=== PATIENT | female | born 1980 | race Caucasian/White ===

== ENCOUNTER 2017-02-10 19:38 | Emergency (ER) | payer MEDICAID, OTHER ==
[2017-02-10 19:38] VITALS: BMI 36.8
[2017-02-10 19:56] VITALS: BP 129/82; PULSE 73; RESP 16; TEMP 98.9; O2SAT 99
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
== END 2017-02-10 20:13 | disposition home or self-care (01) ==
LOC: ED 19:38
DX: L03.116 Cellulitis of left lower limb (principal)

== ENCOUNTER 2018-04-15 19:36 | Emergency (ER) | payer BC, MEDICAID ==
[2018-04-15 19:48] VITALS: BMI 31.6
--- NOTE | 2018-04-15 20:49 | ED PDOC ---
Arrival/HPI - General Chief Complaint: ENT Problem Time Seen by Provider: 04/15/18 20:14 Historian: Patient - History of Present Illness Narrative History of Present Illness (Text): 04/15/18 20:46 37yo female with no pmhx who present with complaint of sore throat, cough, chills, bodyache x 2days. Notes odynophagia. Denies dysphagia, drooling, trismus , hoarseness, sick contact, travel, any other complaint. Past Medical History - Provider Review Nursing Documentation Reviewed: Yes - Infectious Disease Hx of Infectious Diseases: None - Tetanus Immunization Tetanus Immunization: Unknown - Psychiatric Hx Psychophysiologic Disorder: No Hx Substance Use: No - Surgical History Hx Orthopedic Surgery: Yes (left knee) Other/Comment: ECTOPIC - Anesthesia Hx Anesthesia: Yes Family/Social History - Physician Review Nursing Documentation Reviewed: Yes Family/Social History: Unknown Family HX Smoking Status: Never Smoked Hx Alcohol Use: No Hx Substance Use: No Allergies/Home Meds Allergies/Adverse Reactions: Allergies No Known Allergies Allergy (Verified 02/10/17 19:52) Review of Systems - Physician Review All systems were reviewed & negative as marked: Yes - Review of Systems Constitutional: Fevers Eyes: Normal ENT: Sore Throat Respiratory: Normal, Cough Cardiovascular: Normal Gastrointestinal: Normal Genitourinary Female: Normal Musculoskeletal: Normal Skin: Normal Neurological: Normal Endocrine: Normal Hemo/Lymphatic: Normal Psychiatric: Normal Physical Exam Vital Signs Reviewed: Yes Vital Signs Temp Pulse Resp BP Pulse Ox 04/15/18 19:51 99.9 F H 97 H 18 111/77 98 Temperature: Afebrile Blood Pressure: Normal Pulse: Regular Respiratory Rate: Normal Appearance: Positive for: Well-Appearing, Non-Toxic, Comfortable Pain Distress: None Mental Status: Positive for: Alert and Oriented X 3 - Systems Exam Head: Present: Atraumatic, Normocephalic Pupils: Present: PERRL Extroacular Muscles: Present: EOMI Conjunctiva: Present: Normal Mouth: Present: Moist Mucous Membranes Pharnyx: Present: ERYTHEMA, EXUDATE. No: TONSILS ENLARGED, Peritonsilar Swelling, Uvular Deviation, Muffled/Hoarse Voice, Strider Neck: Present: Normal Range of Motion Respiratory/Chest: Present: Clear to Auscultation, Good Air Exchange. No: Respiratory Distress, Accessory Muscle Use, Wheezes, Decreased Breath Sounds, Rales, Retracting, Rhonchi Cardiovascular: Present: Regular Rate and Rhythm, Normal S1, S2. No: Murmurs Abdomen: No: Tenderness, Distention, Peritoneal Signs Back: Present: Normal Inspection Upper Extremity: Present: Normal Inspection. No: Cyanosis, Edema Lower Extremity: Present: Normal Inspection. No: Edema Neurological: Present: GCS=15, CN II-XII Intact, Speech Normal Skin: Present: Warm, Dry, Normal Color. No: Rashes Psychiatric: Present: Alert, Oriented x 3, Normal Insight, Normal Concentration Medical Decision Making - Medication Orders Current Medication Orders: Discontinued Medications Dexamethasone (Decadron Inj) 10 mg IM STAT STA Stop: 04/15/18 20:20 Ibuprofen (Motrin Tab) 600 mg PO STAT STA Stop: 04/15/18 20:20 Penicillin V Potassium (Penicillin Vk Tab) 500 mg PO STAT STA PRN Reason: Protocol Stop: 04/15/18 20:20 Disposition/Present on Arrival - Present on Arrival Any Indicators Present on Arrival: No History of DVT/PE: No History of Uncontrolled Diabetes: No Urinary Catheter: No History of Decub. Ulcer: No History Surgical Site Infection Following: None - Disposition Have Diagnosis and Disposition been Completed?: Yes Diagnosis: Acute tonsillitis Disposition: HOME/ ROUTINE Disposition Time: 20:50 Patient Plan: Discharge Condition: STABLE Discharge Instructions (ExitCare): Sore Throat, Adult (DC) Prescriptions: Benzonatate [Tessalon Perle] 100 mg PO TID #30 capsule Ibuprofen [Motrin Tab] 600 mg PO Q6 #20 tab Penicillin VK [Penicillin VK Tab] 500 mg PO BID #14 tab Referrals: Nevaeh Sparrow MD [Staff Provider] - Follow up with primary
[2018-04-15 23:19] VITALS: BP 120/72; PULSE 90; RESP 16; TEMP 99.1; O2SAT 99
== END 2018-04-15 21:40 | disposition home or self-care (01) ==
LOC: ED 19:36
DX: J03.90 Acute tonsillitis, unspecified (principal)
CPT/HCPCS: 96372; 99283; J1100

== ENCOUNTER 2018-07-22 04:15 | Emergency (ER) | payer BC ==
[2018-07-22 04:16] VITALS: BMI 31.6
[2018-07-22 04:42] VITALS: RESP 18; O2SAT 99
--- NOTE | 2018-07-22 05:14 | ED PDOC ---
Arrival/HPI - General Chief Complaint: ENT Problem Time Seen by Provider: 07/22/18 04:57 Historian: Patient - History of Present Illness Narrative History of Present Illness (Text): 07/22/18 05:10 37 year old female, with no significant past medical history, presents to the emergency department with sore throat discomfort for 4 days. Patient states she was seen previously in an emergency department and prescribed amoxicillin for strep, but still feels discomfort when swallowing. Patient also informs of occasional stomach discomfort;none presently. Patient informs of alcohol use, but states she hasn't had any in the past few days. Patient denies any fever, chills, nausea, vomiting, diarrhea, urinary complaints, or any other complaints. Time/Duration: < week (4 days) Past Medical History - Provider Review Nursing Documentation Reviewed: Yes - Infectious Disease Hx of Infectious Diseases: None - Tetanus Immunization Tetanus Immunization: Unknown - Psychiatric Hx Psychophysiologic Disorder: No Hx Substance Use: No - Surgical History Hx Orthopedic Surgery: Yes (left knee) Other/Comment: ECTOPIC - Anesthesia Hx Anesthesia: Yes Family/Social History - Physician Review Nursing Documentation Reviewed: Yes Family/Social History: No Known Family HX Smoking Status: Never Smoked Hx Alcohol Use: No Frequency of alcohol use: Socially Hx Substance Use: No Allergies/Home Meds Allergies/Adverse Reactions: Allergies No Known Allergies Allergy (Verified 02/10/17 19:52) Review of Systems - Physician Review All systems were reviewed & negative as marked: Yes - Review of Systems Constitutional: absent: Fevers, Night Sweats ENT: Sore Throat Gastrointestinal: Abdominal Pain (occasional stomache pains). absent: Diarrhea, Nausea, Vomiting Genitourinary Female: absent: Urine Output Changes Physical Exam Vital Signs Reviewed: Yes Vital Signs Temp Pulse Resp BP Pulse Ox 07/22/18 04:36 98.2 F 78 18 124/81 99 Temperature: Afebrile Blood Pressure: Normal Pulse: Regular Respiratory Rate: Normal Appearance: Positive for: Well-Appearing, Non-Toxic, Comfortable Pain Distress: None Mental Status: Positive for: Alert and Oriented X 3 - Systems Exam Head: Present: Atraumatic, Normocephalic Pupils: Present: PERRL Extroacular Muscles: Present: EOMI Conjunctiva: Present: Normal Mouth: Present: Moist Mucous Membranes Pharnyx: Present: ERYTHEMA (of pharnyx and tonsils ). No: EXUDATE Neck: No: Meningeal Signs, Lymphadenopathy (no cervical adenopathy) Respiratory/Chest: Present: Clear to Auscultation, Good Air Exchange. No: Respiratory Distress, Accessory Muscle Use Cardiovascular: Present: Regular Rate and Rhythm, Normal S1, S2. No: Murmurs Abdomen: No: Tenderness, Distention, Peritoneal Signs Back: Present: Normal Inspection. No: CVA Tenderness Upper Extremity: Present: Normal Inspection. No: Cyanosis, Edema Lower Extremity: Present: Normal Inspection. No: Edema Neurological: Present: GCS=15, CN II-XII Intact, Speech Normal, Motor Func Grossly Intact, Normal Sensory Function Skin: Present: Warm, Dry, Normal Color. No: Rashes Psychiatric: Present: Alert, Oriented x 3, Normal Insight, Normal Concentration Medical Decision Making ED Course and Treatment: 07/22/18 05:18 Impression: 37 year old female presents with sore throat Plan: -- Labs -- Reassess and disposition Prior Visits: Notes and results from previous visits were reviewed. Progress Notes: - Scribe Statement The provider has reviewed the documentation as recorded by the Salvatore Tanner Provider Scribe Attestation: All medical record entries made by the Salvatore were at my direction and personally dictated by me. I have reviewed the chart and agree that the record accurately reflects my personal performance of the history, physical exam, medical decision making, and the department course for this patient. I have also personally directed, reviewed, and agree with the discharge instructions and disposition. Disposition/Present on Arrival - Present on Arrival Any Indicators Present on Arrival: No History of DVT/PE: No History of Uncontrolled Diabetes: No Urinary Catheter: No History of Decub. Ulcer: No History Surgical Site Infection Following: None - Disposition Have Diagnosis and Disposition been Completed?: Yes Diagnosis: Streptococcal tonsillitis, Gastritis Disposition: HOME/ ROUTINE Disposition Time: 06:16 Patient Plan: Discharge Condition: GOOD Discharge Instructions (ExitCare): Sore Throat, Adult (DC), Strep Throat (DC), Gastritis (DC) Additional Instructions: Drink cool liquids only/take meds as prescribed/continue current medication/avoid alcohol use/follow up with your doctor this week Prescriptions: Pantoprazole [Protonix] 40 mg PO DAILY #14 ect Forms: [place] ([place]), WORK NOTE
[2018-07-22 05:38] LABS: HEMOGLOBIN 11.3 g/dL (12.0-16.0); MEAN CELL VOLUME 83.4 fl (80.0-105.0); MEAN CORPUSCULAR HEMOGLOBIN 27.2 pg (25.0-35.0); MEAN CORPUSCULAR HGB CONC 32.7 g/dl (31.0-37.0); MEAN PLATELET VOLUME 9.2 fl (7.0-11.0); RBC 4.15 10^6/uL (3.5-6.1); RED CELL DISTRIBUTION WIDTH 14.9 % (11.5-14.5); WHITE BLOOD COUNT 11.8 10^3/uL (4.5-11.0)
[2018-07-22 05:58] LABS: ALBUMIN 3.6 g/dL (3.0-4.8); ALT/SGPT 29 U/L (7-56); AST/SGOT 28 U/L (14-36); BLOOD UREA NITROGEN 13 mg/dL (7-21); CALCIUM 8.6 mg/dL (8.4-10.5); GFR NON-AFRICAN AMERICAN > 60; LIPASE 445 U/L (23-300)
[2018-07-22] MEDS ORDERED: Penicillin G Benzathine 1.2 Mill Unit/2 ml Syr IM STA (06:02)
[2018-07-22 06:34] VITALS: BP 125/73; PULSE 82; TEMP 98.3
== END 2018-07-22 06:34 | disposition home or self-care (01) ==
LOC: ED 04:15
DX: J03.00 Acute streptococcal tonsillitis, unspecified (principal); K29.70 Gastritis, unspecified, without bleeding
CPT/HCPCS: 80053; 83690; 85027; 87430; 96372; 99284; J0561; J1100